=== PATIENT | female | born 1995 | race Caucasian/White ===

== ENCOUNTER 2017-06-01 03:51 | Emergency (ER) | payer SELFPAY ==
--- NOTE | 2017-06-01 04:15 | C.PDOC ---
History Of Present Illness 22 year old female presents to the ED c/o left foot pain mainly located on her second toe that started yesterday. Patient went to [facility] ED this morning and was told she had cellulitis she was given one dose of IM antibiotics and offered admission patient declined admission and signed out AMA and has not filled her prescription. Patient presents still c/o pain to her second left toe. [facility] ED place some body markers to show the extent of cellulitis on the foot. Patient denies fever, chills, nausea, vomit, weakness, numbness. Time Seen by Provider: 06/01/17 04:08 Chief Complaint (Nursing): Lower Extremity Problem/Injury History Per: Patient History/Exam Limitations: no limitations Onset/Duration Of Symptoms: Days Current Symptoms Are (Timing): Still Present Recent travel outside of the [place]: No Additional History Per: Patient - Ankle/Foot Description Of Injury: Other Past Medical History Reviewed: Historical Data, Nursing Documentation, Vital Signs Vital Signs: Last Vital Signs Temp 97.5 F L 06/01/17 04:48 Pulse 77 06/01/17 04:48 Resp 16 06/01/17 04:48 BP 104/64 06/01/17 04:48 Pulse Ox 99 06/01/17 04:48 - Medical History PMH: No Chronic Diseases Surgical History: No Surg Hx Family History: States: Unknown Family Hx - Social History Hx Alcohol Use: No Hx Substance Use: No - Immunization History Hx Tetanus Toxoid Vaccination: No Hx Influenza Vaccination: No Hx Pneumococcal Vaccination: No Review Of Systems Constitutional: Negative for: Fever, Chills Cardiovascular: Negative for: Chest Pain Respiratory: Negative for: Shortness of Breath Gastrointestinal: Negative for: Nausea, Vomiting, Abdominal Pain Musculoskeletal: Positive for: Foot Pain Skin: Positive for: Other (cellulitis). Negative for: Rash Neurological: Negative for: Weakness, Numbness Physical Exam - Physical Exam Appears: Non-toxic, No Acute Distress Skin: Normal Color, Warm, Dry Head: Atraumatic, Normacephalic Eye(s): bilateral: Normal Inspection Nose: No Discharge Oral Mucosa: Moist Neck: Normal ROM, Supple Chest: Symmetrical Cardiovascular: Rhythm Regular, No Murmur Respiratory: Normal Breath Sounds, No Rales, No Rhonchi, No Wheezing Gastrointestinal/Abdominal: Soft, No Tenderness, No Guarding, No Rebound Extremity: Normal ROM, No Tenderness, Capillary Refill (< 2 seconds), No Swelling, Other (streaking extends from the base of the second left toe up to mid proximal forefoot dorsally) Pulses: Left Dorsalis Pedis: Normal, Right Dorsalis Pedis: Normal Neurological/Psych: Oriented x3 Gait: Steady ED Course And Treatment O2 Sat by Pulse Oximetry: 100 (On RA) Pulse Ox Interpretation: Normal Medical Decision Making Medical Decision Making: Impression: foot cellulitis Plan: * Ancef 1 gm IM Patient will be D/C with prescription of antibiotics. Disposition - Disposition Referrals: [facility] [Outside] Disposition: HOME/ ROUTINE Disposition Time: 04:15 Condition: GOOD Prescriptions: Cephalexin [Keflex] 500 mg PO QID #28 capsule Forms: [employer] (Upper Sorbian) - Clinical Impression Clinical Impression: Cellulitis - Scribe Statement The provider has reviewed the documentation as recorded by the Scribe Ranjith Padilla All medical record entries made by the Scribe were at my direction and personally dictated by me. I have reviewed the chart and agree that the record accurately reflects my personal performance of the history, physical exam, medical decision making, and the department course for this patient. I have also personally directed, reviewed, and agree with the discharge instructions and disposition.
[2017-06-01 04:51] VITALS: BP 104/64; PULSE 77; RESP 16; TEMP 97.5
[2017-06-01 05:28] VITALS: O2SAT 100
== END 2017-06-01 04:53 | disposition home or self-care (01) ==
LOC: C.ER 03:51
DX: L03.032 Cellulitis of left toe (principal)
CPT/HCPCS: 96372; 99284; J0690

== ENCOUNTER 2017-06-02 15:56 | Emergency (ER) | payer MEDICAID, OTHER ==
[2017-06-02 16:10] VITALS: BMI 28.5
[2017-06-02 16:14] VITALS: BP 128/87; PULSE 91; RESP 18; TEMP 98.3; O2SAT 100
--- NOTE | 2017-06-02 17:16 | C.PDOC ---
History Of Present Illness 22 y/o female presents to the ER complaining of pain and discomfort in the left 2nd toe. Patient states that she has a bump on the bottom of her foot. She was seen in [facility] 5 days ago and she was given a dose of abx. Patient reports that she came to [facility] ER on 06/01/17. She was started on Keflex and discharged home. Patient denies having fever, chills, nausea, vomiting, and diarrhea. Of note, Tetanus UTD. Time Seen by Provider: 06/02/17 16:23 Chief Complaint (Nursing): Lower Extremity Problem/Injury History Per: Patient History/Exam Limitations: no limitations Onset/Duration Of Symptoms: Days Current Symptoms Are (Timing): Still Present Severity: Moderate Past Medical History Reviewed: Historical Data, Nursing Documentation, Vital Signs Vital Signs: Last Vital Signs Temp 98.3 F 06/02/17 16:10 Pulse 91 H 06/02/17 16:10 Resp 18 06/02/17 16:10 BP 128/87 06/02/17 16:10 Pulse Ox 100 06/06/17 07:50 - Medical History PMH: No Chronic Diseases Other Surgeries: Hx of surgeries Family History: States: No Known Family Hx - Social History Hx Alcohol Use: No Hx Substance Use: No - Immunization History Hx Tetanus Toxoid Vaccination: No Hx Influenza Vaccination: No Hx Pneumococcal Vaccination: No Review Of Systems Constitutional: Negative for: Fever, Chills Gastrointestinal: Negative for: Nausea, Vomiting, Diarrhea Musculoskeletal: Positive for: Foot Pain (left foot pain) Physical Exam - Physical Exam Appears: Non-toxic, No Acute Distress Skin: Normal Color, Warm, Dry Head: Atraumatic, Normacephalic Eye(s): bilateral: Normal Inspection Nose: Normal Oral Mucosa: Moist Neck: Supple Chest: Symmetrical Cardiovascular: Rhythm Regular Respiratory: Normal Breath Sounds, No Rales, No Rhonchi, No Wheezing Extremity: Other (fluctuant erythematous mass to ventral aspect of left 2nd toe) Neurological/Psych: Oriented x3, Normal Speech, Normal Motor, Normal Sensation ED Course And Treatment O2 Sat by Pulse Oximetry: 100 (RA) Pulse Ox Interpretation: Normal - Incision & Drainage Of Abscess Anesthesia: Lidocaine 1% Prep Used: Sterile Water, Betadine Procedure: Incised W/Scalpel Blade#: (11), Drained Pus (unable to packed with gauze.), Cultures Obtained And Sent To Lab Medical Decision Making Medical Decision Making: Assessment: Abscess Plan: --Motrin PO --I&D of Abscess Updates: Patient has been advised to continue Keflex at home and follow up with PCP in 2 days. TD is utd Disposition Counseled Patient/Family Regarding: Studies Performed, Diagnosis, Need For Followup - Disposition Disposition: HOME/ ROUTINE Disposition Time: 17:16 Condition: STABLE Additional Instructions: follow up with your doctor in 2 days call to make an appointment take medications as needed return to hospital if symptoms worsens or progress Instructions: Abscess Incision and Drainage Forms: [employer] (Maori), General Discharge Instructions - Clinical Impression Clinical Impression: Abscess - Scribe Statement The provider has reviewed the documentation as recorded by the Chacorta Kasper Provider Attestation: All medical record entries made by the Chacorta were at my direction and personally dictated by me. I have reviewed the chart and agree that the record accurately reflects my personal performance of the history, physical exam, medical decision making, and the department course for this patient. I have also personally directed, reviewed, and agree with the discharge instructions and disposition.
== END 2017-06-02 17:00 | disposition home or self-care (01) ==
LOC: C.ER 15:56
DX: L02.612 Cutaneous abscess of left foot (principal)

== ENCOUNTER 2017-12-31 13:18 | Emergency (ER) | payer MEDICAID, OTHER ==
[2017-12-31 13:19] VITALS: BMI 28.5
[2017-12-31 13:28] VITALS: RESP 18; O2SAT 100
[2017-12-31] MEDS ORDERED: Lidocaine 1% Inj (20ml) INFIL ONE (14:06)
--- NOTE | 2017-12-31 14:56 | C.PDOC ---
History Of Present Illness 22 year old female patient presents to the ER with c/o pain and swelling under her armpits. Patient received abx from PMD and does not take any pain medications at home. Patient denies fever and chills. Time Seen by Provider: 12/31/17 13:44 Chief Complaint (Nursing): Abnormal Skin Integrity History Per: Patient History/Exam Limitations: no limitations Onset/Duration Of Symptoms: Days Current Symptoms Are (Timing): Still Present Quality Of Symptoms: Painful, Swollen Past Medical History Reviewed: Historical Data, Nursing Documentation, Vital Signs Vital Signs: Last Vital Signs Temp 99.5 F 12/31/17 13:25 Pulse 82 12/31/17 13:25 Resp 18 12/31/17 13:25 BP 136/89 12/31/17 13:25 Pulse Ox 100 12/31/17 13:25 - Medical History PMH: Asthma Family History: States: Unknown Family Hx - Social History Hx Alcohol Use: No Hx Substance Use: No - Immunization History Hx Tetanus Toxoid Vaccination: No Hx Influenza Vaccination: No Hx Pneumococcal Vaccination: No Review Of Systems Constitutional: Negative for: Fever, Chills Musculoskeletal: Positive for: Other (pain and swelling under armpits) Physical Exam - Physical Exam Appears: Well, Non-toxic, No Acute Distress Skin: Warm, Dry, Other (quarter size swollend tender fluctuant mass on mid- axillary) Extremity: Normal ROM (x4), Capillary Refill (<2 sec) Pulses: Left Radial: Normal, Right Radial: Normal ED Course And Treatment O2 Sat by Pulse Oximetry: 100 (RA) Pulse Ox Interpretation: Normal Progress Note: Impression: quarter size swollen tender fluctuant mass on mid-ax illary. Plans: -- toradol. -- incision and drainage. Incision and drainage procedure: With appropriate anesthesia, the abscess was incised and drained of purulent material under aseptic conditions by me. Wound culture was obtained and sent to lab. Wound packing was inserted and sterile dressing was applied. - Incision & Drainage Of Abscess Anesthesia: Lidocaine 1% Prep Used: Betadine Procedure: Incised W/Scalpel Blade#: (11), Drained Pus, Irrigated Cavity W/Saline, Probed To Break Up Loculations, Packed W/Gauze, Cultures Obtained And Sent To Lab Disposition - Disposition Forms: [employer] (Arabic) - PA / EQUIP TECH / Resident Statement / has reviewed & agrees with the documentation as recorded. - Scribe Statement The provider has reviewed the documentation as recorded by the Chacorta Rodriguez Do All medical record entries made by the Chacorta were at my direction and personally dictated by me. I have reviewed the chart and agree that the record accurately reflects my personal performance of the history, physical exam, medical decision making, and the department course for this patient. I have also personally directed, reviewed, and agree with the discharge instructions and disposition.
--- NOTE | 2017-12-31 15:08 | C.PDOC ---
History Of Present Illness 22 year old female patient presents to the ER with c/o pain and swelling under her right armpits. Patient received abx from PMD and does not take any pain medications at home. Patient denies fever and chills. Time Seen by Provider: 12/31/17 13:44 Chief Complaint (Nursing): Abnormal Skin Integrity History Per: Patient History/Exam Limitations: no limitations Onset/Duration Of Symptoms: Days Current Symptoms Are (Timing): Still Present Quality Of Symptoms: Painful, Swollen Past Medical History Reviewed: Historical Data, Nursing Documentation, Vital Signs Vital Signs: Last Vital Signs Temp 99.5 F 12/31/17 13:25 Pulse 82 12/31/17 13:25 Resp 18 12/31/17 13:25 BP 136/89 12/31/17 13:25 Pulse Ox 100 12/31/17 13:25 - Medical History PMH: Asthma Family History: States: Unknown Family Hx - Social History Hx Alcohol Use: No Hx Substance Use: No - Immunization History Hx Tetanus Toxoid Vaccination: No Hx Influenza Vaccination: No Hx Pneumococcal Vaccination: No Review Of Systems Constitutional: Negative for: Fever, Chills Musculoskeletal: Positive for: Other (pain and swelling under right armpits) Physical Exam - Physical Exam Appears: Well, Non-toxic, No Acute Distress Skin: Warm, Dry, Other (quarter sized swollen and tender fluctuant mass on mid-axillary) Extremity: Normal ROM (x4), Capillary Refill (<2 sec) Pulses: Left Brachial: Normal, Right Brachial: Normal, Left Radial: Normal, Right Radial: Normal ED Course And Treatment O2 Sat by Pulse Oximetry: 100 (RA) Pulse Ox Interpretation: Normal Progress Note: Impression: quarter size swollen tender fluctuant mass on mid- axillary. Plans: -- toradol. -- incision and drainage. I&D Procedure: With appropriate anesthesia, the abscess was incised and drained of purulent material under aseptic conditions by me. Wound culture was obtained and sent to lab. Wound packing was inserted and sterile dressing was applied. - Incision & Drainage Of Abscess Anesthesia: Lidocaine 1% Prep Used: Betadine Procedure: Incised W/Scalpel Blade#: (11), Drained Pus, Irrigated Cavity W/Saline, Probed To Break Up Loculations, Packed W/Gauze, Cultures Obtained And Sent To Lab Medical Decision Making Medical Decision Making: pt iwth right axillary abscess. s/p i and d, pt declines toradol, tylenol and motrin. d/c home continue doxycycline that pt has at home. Disposition Counseled Patient/Family Regarding: Diagnosis, Need For Followup, Rx Given - Disposition Disposition: HOME/ ROUTINE Disposition Time: 15:09 Condition: GOOD Additional Instructions: Keep right armpit clean and dry, covered with gauze. Return to ER in 2 days for wound check and packing removal. Continue taking Doxycycline at home until completed. Tylenol or Motrin for pain. Prescriptions: Ibuprofen [Motrin] 600 mg PO TID #30 tab Instructions: Abscess Incision and Drainage (DC) Forms: General Discharge Instructions, [employer] (Sri Lankan) - Clinical Impression Clinical Impression: Abscess of right axilla - PA / [employer] SUPERVISOR / Resident Statement MD/ has reviewed & agrees with the documentation as recorded. - Scribe Statement The provider has reviewed the documentation as recorded by the Chacorta Rodriguez Do All medical record entries made by the Scribe were at my direction and personally dictated by me. I have reviewed the chart and agree that the record accurately reflects my personal performance of the history, physical exam, medical decision making, and the department course for this patient. I have also personally directed, reviewed, and agree with the discharge instructions and disposition.
[2017-12-31 15:22] VITALS: BP 118/85; PULSE 62; TEMP 98.5
== END 2017-12-31 15:37 | disposition home or self-care (01) ==
LOC: C.ER 13:18
DX: L02.411 Cutaneous abscess of right axilla (principal)